=== PATIENT | male | born 1990 | race Two or more races ===

== ENCOUNTER 2023-08-15 14:19 | Emergency (ER) | payer OTHER ==
[~2023-08-15] VITALS: Ht 170.2 cm; Wt 74.4 kg
[2023-08-15 17:12] LABS: HEMATOCRIT 43.4 % (39.0-48.0); MEAN CELL VOLUME 86.3 fL (80.0-100.00); MEAN CORPUSCULAR HEMOGLOBIN 29.9 pg (27.00-32.0); MEAN CORPUSCULAR HGB CONC 34.7 g/dl (32.0-36.0); PLATELET COUNT 273 K/uL (150-450); RED BLOOD COUNT 5.03 M/uL (4.00-6.00); RED CELL DISTRIBUTION WIDTH 13.2 % (11.5-14.5)
[2023-08-15 17:16] LABS: URINE APPEARANCE Clear; URINE BILIRRUBIN Small (NEGATIVE); URINE BLOOD Trace; URINE COLOR Orange; URINE GLUCOSE Negative (NEGATIVE); URINE LEUKOCYTE Small; URINE NITRATE Positive; URINE PROTEIN Trace (NEGATIVE)
[2023-08-15 17:19] LABS: URINE RBC 31.4 uL (0.0-20.8); URINE WBC 1.8 uL (0.0-23.2)
[2023-08-15 17:45] LABS: CALCIUM 9.1 mg/dL (8.5-10.1); CREATININE SERUM 1.22 mg/dL (0.70-1.30); GFR 68.84; POTASSIUM 3.83 mEq/L (3.5-5.1)
[2023-08-15 18:49] LABS: PARTIAL THROMBOPLASTIN TIME 27.8 SECONDS (22.0-34.0); PROTHROMBIN TIME 10.5 SECONDS (9.0-11.5)
[2023-08-15 19:43] LABS: URINE BACTERIA 0 uL (0.0-1933); URINE EPITHELIAL CELLS 1.3 uL (0.0-38.8)
[2023-08-15] MEDS ORDERED: LEVOFLOXACIN500 MG PO (19:50)
== END 2023-08-15 20:22 | disposition home or self-care (01) ==
LOC: ER 14:19
PROVIDERS: General Practice
DX: N39.0 Urinary tract infection, site not specified (principal); R10.9 Unspecified abdominal pain

== ENCOUNTER 2023-08-26 17:26 | Emergency (ER) | payer OTHER ==
[~2023-08-26] VITALS: Ht 170.2 cm; Wt 74.8 kg
[~2023-08-26 17:26] MED LIST: LEVOFLOXACIN500 MG PO
[2023-08-26 18:53] LABS: HEMATOCRIT 39.2 % (39.0-48.0); HEMOGLOBIN 13.4 g/dL (13-16.00); MEAN CELL VOLUME 87.2 fL (80.0-100.00); MEAN CORPUSCULAR HEMOGLOBIN 29.8 pg (27.00-32.0); MEAN CORPUSCULAR HGB CONC 34.2 g/dl (32.0-36.0); PLATELET COUNT 303 K/uL (150-450)
[2023-08-26 19:12] LABS: CALCIUM 9.2 mg/dL (8.5-10.1); CREATININE SERUM 1.01 mg/dL (0.70-1.30); GFR 85.6; POTASSIUM 3.47 mEq/L (3.5-5.1)
[2023-08-26 19:41] LABS: URINE APPEARANCE Clear; URINE BILIRRUBIN Negative (NEGATIVE); URINE BLOOD Small; URINE COLOR Yellow; URINE GLUCOSE Negative (NEGATIVE); URINE LEUKOCYTE Negative; URINE NITRATE Negative; URINE PROTEIN Negative (NEGATIVE); URINE UROBILINOGEN 0.2 E.U./dl
[2023-08-26 19:42] LABS: URINE RBC 55.4 uL (0.0-20.8); URINE WBC 6.6 uL (0.0-23.2)
[2023-08-26 19:44] LABS: URINE BACTERIA 3.7 uL (0.0-1933)
== END 2023-08-26 20:26 | disposition home or self-care (01) ==
LOC: ER 17:26
PROVIDERS: General Practice
DX: N20.9 Urinary calculus, unspecified (principal)

== ENCOUNTER 2023-09-16 07:45 | Emergency (ER) | payer OTHER ==
[~2023-09-16] VITALS: Ht 170.2 cm; Wt 74.8 kg
[2023-09-16 09:01] LABS: HEMATOCRIT 44.2 % (39.0-48.0); HEMOGLOBIN 15.1 g/dL (13-16.00); MEAN CELL VOLUME 87.1 fL (80.0-100.00); MEAN CORPUSCULAR HEMOGLOBIN 29.7 pg (27.00-32.0); MEAN CORPUSCULAR HGB CONC 34.1 g/dl (32.0-36.0); PLATELET COUNT 263 K/uL (150-450); RED BLOOD COUNT 5.08 M/uL (4.00-6.00); RED CELL DISTRIBUTION WIDTH 13.2 % (11.5-14.5)
[2023-09-16 09:02] LABS: URINE APPEARANCE Clear; URINE BILIRRUBIN Negative (NEGATIVE); URINE BLOOD Trace; URINE COLOR Yellow; URINE GLUCOSE Negative (NEGATIVE); URINE LEUKOCYTE Negative; URINE NITRATE Negative; URINE PROTEIN Negative (NEGATIVE); URINE UROBILINOGEN 0.2 E.U./dl
[2023-09-16 09:06] LABS: URINE EPITHELIAL CELLS 1.8 uL (0.0-38.8); URINE WBC 5.2 uL (0.0-23.2)
[2023-09-16 09:10] LABS: URINE BACTERIA 3.7 uL (0.0-1933)
[2023-09-16 09:48] LABS: CALCIUM 9.8 mg/dL (8.5-10.1); CREATININE SERUM 1.02 mg/dL (0.70-1.30); GFR 84.64; POTASSIUM 4.09 mEq/L (3.5-5.1)
== END 2023-09-16 11:02 | disposition home or self-care (01) ==
LOC: ER 07:45
PROVIDERS: General Practice
DX: R10.9 Unspecified abdominal pain (principal); N20.9 Urinary calculus, unspecified